=== PATIENT | female | born 1940 | race Caucasian/White ===

== ENCOUNTER → 2018-09-11 | Outpatient (CLI) | payer MEDICARE ==
[~2018-09-11] MED LIST: ACET500 PO; ASPI325EC PO; CALCIUM PO; Calcium Citrat250 MG PO; DIGESTIVE ENZY220 MG PO; DIGESTIVE ENZYMES PO; EPIN.3I; EPIPEN0.3 MG/0.3 IM; GLUC PO; JOINT FORMULA PO; LEVSOD100 PO; MEGA MULTIVIT PO; MILK THISTLE PO; MSM PO; OXYC5 PO; [UNRECOGNIZED DRUG - OTHER]; [UNRECOGNIZED DRUG - OTHER]; [UNRECOGNIZED DRUG - OTHER]; [UNRECOGNIZED DRUG - OTHER] PO
== END | disposition home or self-care (01) ==
LOC: LAB SHORT 13:10 → LAB 13:10
DX: L08.0 Pyoderma (principal)
CPT/HCPCS: 87070; 87205

== ENCOUNTER 2018-12-11 06:12 | Day surgery (SDC) | payer MEDICARE ==
[~2018-12-11] VITALS: Ht 162.6 cm; Wt 82.0 kg
[~2018-12-11 06:12] MED LIST changes: -Calcium Citrat250 MG PO; -DIGESTIVE ENZY220 MG PO; -[UNRECOGNIZED DRUG - OTHER]; -[UNRECOGNIZED DRUG - OTHER]; -[UNRECOGNIZED DRUG - OTHER]
[2018-12-11] MEDS ORDERED: Calcium Citrat250 MG PO (06:37)
[2018-12-11] MEDS ORDERED: DIGESTIVE ENZY220 MG PO (06:38)
[2018-12-11] MEDS ORDERED: [UNRECOGNIZED DRUG - OTHER] (06:39)
[2018-12-11] MEDS ORDERED: [UNRECOGNIZED DRUG - OTHER] (06:40)
[2018-12-11] MEDS ORDERED: [UNRECOGNIZED DRUG - OTHER] (06:40)
--- NOTE | 2018-12-11 08:20 | NUR ---
PT TO RECOVERY POST PROCEDURE. PT IS AWAKE AND CONVERSING. PT DENIES PAIN, SOB OR NAUSEA. MONITOR SR 70'S, B/P 122/62, AFEBRILE, SPO2 97 RA. R BRACHIAL SITE, NO SWELLING/HEMATOMA, LEDY DRSG IN PLACE-OLD DRAINAGE MAPPED. PT SITTING UP IN THE CHAIR, VISITING WITH FAMILY.
--- NOTE | 2018-12-11 10:35 | NUR ---
PT AMB TO BATHROOM, SITE UNCHANGED WITH ACTIVITY. PT GOT DRESSED WITH ASSISTANCE FROM SPOUSE, ARM BOARDS IN PLACE R ARM TO RESTRICT MOVEMENT AND PRESSURE ON SITE.
--- NOTE | 2018-12-11 10:45 | NUR ---
PT AND FAMILY RECEIVED DISCHARGE INSTRUCTIONS, MED LIST AND SUPPLEMENTAL "AFTER CARE" MATERIAL, VERBALIZED GOOD UNDERSTANDING. IV REMOVED-CANNULA INTACT.
--- NOTE | 2018-12-11 10:55 | NUR ---
PT LEFT FACILITY VIA W/C WITH FAMILY, CONDITION STABLE.
== END 2018-12-11 10:55 | disposition home or self-care (01) ==
LOC: MHTC 06:12
DX: Z01.810 Encounter for preprocedural cardiovascular examination (principal); I08.0 Rheumatic disorders of both mitral and aortic valves; D72.819 Decreased white blood cell count, unspecified; I10 Essential (primary) hypertension; E03.9 Hypothyroidism, unspecified; M19.90 Unspecified osteoarthritis, unspecified site; Z87.891 Personal history of nicotine dependence; Z88.0 Allergy status to penicillin; Z96.643 Presence of artificial hip joint, bilateral
CPT/HCPCS: 93005; 93010; 93454; 99152; 99153; C1769; C1894; J1644; J2250; J3010; J7030; Q9967

== ENCOUNTER 2019-01-03 09:10 | Day surgery (SDC) | payer MEDICARE ==
[~2019-01-03] VITALS: Ht 167.6 cm; Wt 81.8 kg
[~2019-01-03 09:10] MED LIST changes: +Calcium Citrat250 MG PO; +DIGESTIVE ENZY220 MG PO; +[UNRECOGNIZED DRUG - OTHER]; +[UNRECOGNIZED DRUG - OTHER]; +[UNRECOGNIZED DRUG - OTHER]
== END 2019-01-03 23:47 | disposition home or self-care (01) ==
LOC: MHTC 09:10
DX: I08.0 Rheumatic disorders of both mitral and aortic valves (principal); I42.9 Cardiomyopathy, unspecified; D72.819 Decreased white blood cell count, unspecified; E03.9 Hypothyroidism, unspecified; E78.5 Hyperlipidemia, unspecified; Z96.643 Presence of artificial hip joint, bilateral; Z91.030 Bee allergy status; Z88.0 Allergy status to penicillin; Z91.048 Other nonmedicinal substance allergy status; Z79.899 Other long term (current) drug therapy
CPT/HCPCS: 76376; 93312; 93325; J2250; J3010; J7040

== ENCOUNTER 2019-04-15 14:06 | Day surgery (SDC) | payer MEDICARE | END 2019-04-15 22:45 | disposition home or self-care (01) | LOC: US 14:06 | DX: I50.9 Heart failure, unspecified (principal); J91.8 Pleural effusion in other conditions classified elsewhere; I35.0 Nonrheumatic aortic (valve) stenosis; E78.5 Hyperlipidemia, unspecified; E03.9 Hypothyroidism, unspecified; I42.9 Cardiomyopathy, unspecified; Z87.891 Personal history of nicotine dependence; Z79.899 Other long term (current) drug therapy; Z79.82 Long term (current) use of aspirin; Z95.0 Presence of cardiac pacemaker; Z88.0 Allergy status to penicillin; Z91.030 Bee allergy status; Z91.048 Other nonmedicinal substance allergy status; Z95.2 Presence of prosthetic heart valve | CPT/HCPCS: 32555; 36415; 71045; 80053; 83615; 85025; 85610; 85730 ==

== ENCOUNTER 2019-05-05 23:43 | Observation (INO) | payer MEDICARE ==
[~2019-05-05] VITALS: Ht 157.5 cm; Wt 74.7 kg
[~2019-05-05 23:43] MED LIST changes: -[UNRECOGNIZED DRUG - OTHER]; +[UNRECOGNIZED DRUG - OTHER] PO
[2019-05-06 00:45] LABS: BASOPHILS ABSOLUTE AUTO 0.07 K/mm3 (0.00-0.23); BASOPHILS PERCENT AUTO 2 % (0-2); EOSINOPHILS ABSOLUTE AUTO 0.27 K/mm3 (0.00-0.68); EOSINOPHILS PERCENT AUTO 6 % (0-6); Hematocrit 39.8 % (33.0-51.0); Hemoglobin 12.5 g/dL (11.5-16.0); IMMATURE GRAN ABSOLUTE AUTO 0.02 K/mm3 (0.00-0.10); IMMATURE GRAN PERCENT AUTO 1 % (0-1); LYMPHOCYTES ABSOLUTE AUTO 1.01 K/mm3 (0.84-5.20); LYMPHOCYTES PERCENT AUTO 24 % (21-46); MONOCYTES ABSOLUTE AUTO 0.54 K/mm3 (0.16-1.47); MONOCYTES PERCENT AUTO 13 % (4-13); Mean Corpuscular HGB 30.5 pg (26.0-34.0); Mean Corpuscular HGB Conc 31.4 g/dL (31.5-36.5); Mean Corpuscular Volume 97 fL (80-100); Mean Platelet Volume 11.5 fL (9.1-12.4); NEUTROPHILS ABSOLUTE AUTO 2.36 K/mm3 (1.96-9.15); NEUTROPHILS PERCENT AUTO 55 % (41-73); Platelet Count 176 K/mm3 (150-400); RDW Coefficient Variation 14.9 % (11.7-14.2); RDW Standard Deviation 53.9 fL (35.1-46.3); White Blood Cell Count 4.27 K/mm3 (4.00-11.30)
[2019-05-06 01:06] LABS: Alanine Aminotransfer (ALT/SGP 36 U/L (12-78); Albumin, Blood 2.3 g/dL (3.4-5.0); Albumin/Globulin Ratio 0.5 (0.8-1.8); Alk Phos 399 U/L (50-136); Anion Gap 5 mmol/L (6-16); Aspartate Aminotrans (AST/SGOT 45 U/L (12-37); Bilirubin, Total 0.2 mg/dL (0.1-1.0); Blood Urea Nitrogen 14 mg/dL (8-24); CO2, Blood 30 mmol/L (21-32); Calcium, Blood 8.6 mg/dL (8.5-10.1); Chloride, Blood 101 mmol/L (98-108); Creatinine, Blood 0.74 mg/dL (0.40-1.00); Globulin, Blood 4.7 g/dL (2.2-4.0); Glomerular Filtration Rate >60 (60-); Glucose, Blood 222 mg/dL (70-99); Potassium, Blood 3.8 mmol/L (3.5-5.5); Sodium, Blood 136 mmol/L (136-145)
[2019-05-06] MEDS ORDERED: METO25 PO (01:47)
[2019-05-06] MEDS ORDERED: FURO40 PO (01:48)
[2019-05-06] MEDS ORDERED: POTCHL20ER PO (01:48)
[2019-05-06] MEDS ORDERED: ASPI81CH PO (01:49)
[2019-05-06] MEDS ORDERED: CITRACAL PO (01:51)
[2019-05-06] MEDS ORDERED: CURCUMIN PO (01:53)
[2019-05-06] MEDS ORDERED: [UNRECOGNIZED DRUG - OTHER] PO (01:54)
[2019-05-06] MEDS ORDERED: VITAMIN D35000 UNI2 PO (01:54)
[2019-05-06] MEDS ORDERED: DIGESTIVE ENZYMES PO (01:55)
[2019-05-06] MEDS ORDERED: [UNRECOGNIZED DRUG - OTHER] PO (01:57)
[2019-05-06] MEDS ORDERED: ACET325 PO (02:00)
[2019-05-06] MEDS ORDERED: [UNRECOGNIZED DRUG - OTHER] PO (02:00)
--- NOTE | 2019-05-06 02:55 | NUR ---
PATIENT BEING ADMITTED TO THE FLOOR FOR CHEST PAIN. SHE ARRIVED VIA GURNEY AND TRANSFERRED TO BED WITH 1 PERSON ASSIST. FAMILY IS AT BEDSIDE AND HELPED WITH ADMISSION. STATES RECENT AORTIC STENOSIS SURGERY IN [place] 03/13/19. SINCE THEN SHE HAS DEVELOPED FLUIDS ON THE LUNGS AND NEEDING THOROSENTSIS TWICE. LAST ONE YESTERDAY. EACH TIMES HAS PULLED OFF 1 LITER OF FLUID. SHE DEVELOPED CHEST PAIN LAST NIGHT AROUND 2230. IT WAS DULL ACHE THAT DID NOT RESOLVE NO MATTER WHAT THEY DID. THEREFORE COMING TO THE HOSPITAL. TROPONIN IS 0.060 AT THIS TIME. ADMISSION COMPLETED. ORIENTED TO ROOM. SON GOING HOME FOR THE NIGHT. IS STAYING WITH PATIENT. CALL LIGHT GIVEN. DENIED FLU SHOT AND LOVENOX. WILL CONTINUE TO MONITOR.
--- NOTE | 2019-05-06 05:24 | NUR ---
SHIFT SUMMARY: PATIENT ARRIVED TO THE FLOOR AROUND 0245 LAST NIGHT WITH CHEST PAIN. BY THE TIME SHE GOT TO THE FLOOR CHEST PAIN WAS RESOLVING RATING IT AT 2-3. IT WAS MIDSTERNUM AND GOING DOWN THE LEFT ARM. SHE DENIED HER LOVENOX SHOT GIVEN THE RECENT CARDIAC SURGERY AND DENIED FLU SHOT SHE HAD ONE. SETTLED THE PATIENT IN FOR THE NIGHT. THERE HAS NOT BEEN ANY CHEST PAIN SINCE ARRIVAL. TELEMETRY RESULTS ARE SINUS RUNNING IN THE 80'S. VS HAVE REMAINED WNL. NO CHANGES TO REPORT. CALL LIGHT REMAINED IN REACH.
[2019-05-06 05:27] LABS: BASOPHILS ABSOLUTE AUTO 0.02 K/mm3 (0.00-0.23); BASOPHILS PERCENT AUTO 1 % (0-2); EOSINOPHILS ABSOLUTE AUTO 0.13 K/mm3 (0.00-0.68); EOSINOPHILS PERCENT AUTO 5 % (0-6); Hematocrit 37.9 % (33.0-51.0); IMMATURE GRAN ABSOLUTE AUTO 0.01 K/mm3 (0.00-0.10); IMMATURE GRAN PERCENT AUTO 0 % (0-1); LYMPHOCYTES ABSOLUTE AUTO 0.94 K/mm3 (0.84-5.20); LYMPHOCYTES PERCENT AUTO 35 % (21-46); MONOCYTES ABSOLUTE AUTO 0.51 K/mm3 (0.16-1.47); MONOCYTES PERCENT AUTO 19 % (4-13); Mean Corpuscular HGB 30.6 pg (26.0-34.0); Mean Corpuscular HGB Conc 31.7 g/dL (31.5-36.5); Mean Corpuscular Volume 97 fL (80-100); Mean Platelet Volume 11.2 fL (9.1-12.4); NEUTROPHILS ABSOLUTE AUTO 1.11 K/mm3 (1.96-9.15); NEUTROPHILS PERCENT AUTO 41 % (41-73); Platelet Count 161 K/mm3 (150-400); RDW Coefficient Variation 15.1 % (11.7-14.2); RDW Standard Deviation 53.8 fL (35.1-46.3); Red Blood Cell Count 3.92 M/mm3 (3.80-5.20); White Blood Cell Count 2.72 K/mm3 (4.00-11.30)
--- NOTE | 2019-05-06 09:01 | NUR ---
Echocardiogram completed.
--- NOTE | 2019-05-06 17:45 | NUR ---
SUMMARY PT SITTING UP IN BED VISITING WITH FAMILY, PT HAS BEEN UP WITH MIN ASSIST TO THE BATHROOM, SPOUSE HAS BEEN AT THE BEDSIDE FOR MOST OF THE DAY, SON HAS ALSO BEEN IN TO VISIT, PULM CONSULT AND CARDIO CONSULT DONE, CT SCAN OF THE CHEST DONE, PT HAS BEEN CHEST PAIN FREE T/O THE DAY, PLAN TO DC HOME IN AM, VSS, NO ACUTE CHANGES, WILL CONT TO MONITOR
--- NOTE | 2019-05-07 04:22 | NUR ---
SHIFT SUMMARY ADMITTED FOR CHEST PAIN. FULL CODE. A&O X4. TELEMETRY IS MONITORING: PACED, BBB @ 88 BPM. RA, STANDBY ASSIST TO BATHROOM, CARDIAC DIET. HOPEFUL FOR DC TODAY. AWAITING MORNING TROPONIN LABS. SUSPICION OF SLOW BLEED FROM OPEN HEART SURGERY PERFORMED IN FEBRUARY 2019. HX: RIGHT PE, AORTIC & MITRAL VALVE STENOSIS, VALVE REPLACEMENTS, HYPOTHYROID, OSTEOARTHRITIS, LOW GRADE B-CELL LYMPHOMA, MYOMECTOMY. DENIES CHEST PAIN THIS SHIFT.
--- NOTE | 2019-05-07 11:12 | NUR ---
SUMMARY/DISCHARGE PT DISCHARGED TO HOME, PT VERBALIZED UNDERSTANDING OF DISCHARGE INSTRUCTIONS REGARDING FOLLOW UP AND MEDS, PT TAKEN OUT SAFELY VIA WHEELCHAIR
== END 2019-05-07 11:00 | disposition home or self-care (01) ==
LOC: ER 23:43 → MEDS 23:44
PROVIDERS: Emergency Medicine; ADMIT Hospitalist
DX: R07.9 Chest pain, unspecified (principal); J90 Pleural effusion, not elsewhere classified; E03.9 Hypothyroidism, unspecified; C85.10 Unspecified B-cell lymphoma, unspecified site; Z95.2 Presence of prosthetic heart valve; Z88.0 Allergy status to penicillin; Z91.038 Other insect allergy status; Z88.8 Allergy status to other drugs, medicaments and biological substances; Z79.82 Long term (current) use of aspirin; Z79.899 Other long term (current) drug therapy; Z87.891 Personal history of nicotine dependence
CPT/HCPCS: 36415; 71046; 71260; 80053; 83690; 84443; 84484; 85025; 93005; 93010; 93306; 93308; 93321; 99285-25; A9270-GY; G0378; Q9967

== ENCOUNTER 2020-11-23 08:16 | Day surgery (SDC) | payer MEDICARE ==
[~2020-11-23] VITALS: Ht 167.6 cm; Wt 79.1 kg
[~2020-11-23 08:16] MED LIST changes: +ACET325 PO; +ASPI81CH PO; +CITRACAL PO; +CURCUMIN PO; +FURO40 PO; +METO25 PO; +POTCHL20ER PO; +VITAMIN D35000 UNI2 PO; +[UNRECOGNIZED DRUG - OTHER] PO; +[UNRECOGNIZED DRUG - OTHER] PO; +[UNRECOGNIZED DRUG - OTHER] PO
--- NOTE | 2020-11-23 09:01 | NUR ---
History, Chart, Medications and Allergies reviewed before start of procedure. Patient confirms NPO status and agrees with scheduled surgery. Patient States Post-Procedure ride home has been arranged arranged with her .
--- NOTE | 2020-11-23 12:35 | NUR ---
PT ABLE TO DRESS WITH NO ASSISTANCE. RIDE HOME WAITING OUT FRONT. PT GIVEN D/C INSTRUCTIONS, DENIES QUESTIONS. MEDIPORT ACCESS PACKET GIVEN TO PT. D/C VIA .
== END 2020-11-23 23:00 | disposition home or self-care (01) ==
LOC: ORSCMMR 08:16 → ORD 09:30 → ORSCMMR 23:00
PROVIDERS: Surgery
PROC: 05HM33Z Insertion of Infusion Device into Right Internal Jugular Vein, Percutaneous Approach (ICD-10-PCS; principal; 2020-11-23 09:30)
PROC: B543ZZA Ultrasonography of Right Jugular Veins, Guidance (ICD-10-PCS; principal; 2020-11-23 09:30)
DX: C83.88 Other non-follicular lymphoma, lymph nodes of multiple sites (principal); I10 Essential (primary) hypertension; I25.10 Atherosclerotic heart disease of native coronary artery without angina pectoris; Z95.0 Presence of cardiac pacemaker; E03.9 Hypothyroidism, unspecified; Z79.899 Other long term (current) drug therapy; Z79.82 Long term (current) use of aspirin
CPT/HCPCS: 77001; C1788; J0690; J1100; J1642; J2250; J2370; J2405; J2704; J3010; J7120

== ENCOUNTER → 2021-04-24 | Outpatient (CLI) | payer MEDICARE ==
[2021-04-24 17:09] LABS: Hematocrit 40.7 % (33.0-51.0); Hemoglobin 13.7 g/dL (11.5-16.0); Mean Corpuscular HGB 31.9 pg (26.0-34.0); Mean Corpuscular HGB Conc 33.7 g/dL (31.5-36.5); Mean Corpuscular Volume 95 fL (80-100); RDW Coefficient Variation 13.2 % (11.7-14.2); RDW Standard Deviation 46.2 fL (35.1-46.3); Red Blood Cell Count 4.29 M/mm3 (3.80-5.20); White Blood Cell Count 1.16 K/mm3 (4.00-11.30)
[2021-04-24 17:20] LABS: Albumin, Blood 2.8 g/dL (3.4-5.0); Albumin/Globulin Ratio 0.9 (0.8-1.8); Bilirubin, Total 0.9 mg/dL (0.1-1.0); Bun/Creatinine Ratio 16.7 (12.0-20.0); Calcium, Blood 8.7 mg/dL (8.5-10.1); Creatinine, Blood 0.96 mg/dL (0.40-1.00); Globulin, Blood 3.2 g/dL (2.2-4.0); Potassium, Blood 3.9 mmol/L (3.5-5.5)
[2021-04-24 17:47] LABS: Mean Platelet Volume 13.2 fL (9.1-12.4)
[2021-04-24 17:49] LABS: Platelet Count 41 K/mm3 (150-400)
[2021-04-24 18:12] LABS: BAND PERCENT MAN 6 % (0-8); BASOPHILS PERCENT MAN 0 % (0-2); EOSINOPHILS ABSOLUTE MAN 0.02 K/mm3 (0.00-0.68); EOSINOPHILS PERCENT MAN 2 % (0-6); LYMPHOCYTES ABSOLUTE MAN 0.61 K/mm3 (0.84-5.20); LYMPHOCYTES PERCENT MAN 53 % (21-46); MONOCYTES ABSOLUTE MAN 0.33 K/mm3 (0.16-1.47); MONOCYTES PERCENT MAN 29 % (4-13); NEUTROPHILS ABSOLUTE MAN 0.18 K/mm3 (1.96-9.15); SEG NEUTROPHILS PERCENT MAN 10 % (41-73); TOTAL CELLS COUNTED 100
== END | disposition home or self-care (01) ==
LOC: LAB SHORT 17:03 → LAB 17:03
PROVIDERS: Physician Assistant Medical
DX: R53.83 Other fatigue (principal)
CPT/HCPCS: 80053; 85025

== ENCOUNTER 2021-04-28 14:52 | Inpatient (IN) | payer MEDICARE ==
[~2021-04-28] VITALS: Ht 167.6 cm; Wt 75.5 kg
[2021-04-28 18:43] LABS: Hematocrit 40.6 % (33.0-51.0); Mean Corpuscular HGB Conc 34.5 g/dL (31.5-36.5); Mean Corpuscular Volume 90 fL (80-100); Platelet Count 58 K/mm3 (150-400); RDW Coefficient Variation 13.8 % (11.7-14.2); RDW Standard Deviation 45.9 fL (35.1-46.3); Red Blood Cell Count 4.51 M/mm3 (3.80-5.20); White Blood Cell Count 14.84 K/mm3 (4.00-11.30)
[2021-04-28 18:50] LABS: Mean Platelet Volume 13.5 fL (9.1-12.4)
[2021-04-28 19:03] LABS: Albumin, Blood 2.3 g/dL (3.4-5.0); Albumin/Globulin Ratio 0.7 (0.8-1.8); Bilirubin, Total 0.8 mg/dL (0.1-1.0); Bun/Creatinine Ratio 25.2 (12.0-20.0); Calcium, Blood 8.4 mg/dL (8.5-10.1); Creatinine, Blood 1.27 mg/dL (0.40-1.00); Globulin, Blood 3.5 g/dL (2.2-4.0); Total Protein, Blood 5.8 g/dL (6.4-8.2)
[2021-04-28 19:16] LABS: Source, Urine Clean Catch
[2021-04-28 19:22] LABS: Appearance, Urine Clear (Clear); Bilirubin, Urine Neg (Neg); Blood, Urine Neg (Neg); Color, Urine Yellow (P-Yellow); Glucose Qualitative, Urine Neg (Neg); Ketones, Urine Neg (Neg); Leukocyte Esterase, Urine Neg (Neg); Nitrite, Urine Neg (Neg); Protein, Urine Neg (Neg); Specific Gravity, Urine 1.005 (1.003-1.022); Urobilinogen, Urine NORM (Normal)
[2021-04-28 19:58] LABS: BAND PERCENT MAN 15 % (0-8); BASOPHILS PERCENT MAN 0 % (0-2); EOSINOPHILS PERCENT MAN 0 % (0-6); LYMPHOCYTES ABSOLUTE MAN 0.44 K/mm3 (0.84-5.20); LYMPHOCYTES PERCENT MAN 3 % (21-46); MONOCYTES ABSOLUTE MAN 0.89 K/mm3 (0.16-1.47); MONOCYTES PERCENT MAN 6 % (4-13); SEG NEUTROPHILS PERCENT MAN 76 % (41-73); TOTAL CELLS COUNTED 100
--- NOTE | 2021-04-28 21:55 | NUR ---
ADMISSION: PATIENT IS RECIEVED FROM ER VIA STRETCHER. STOOD AND TRANSFERED WITH SBA TO THE BED. A&O X4, REPORTING BACK AND ABD. PAIN ONLY WITH MOVEMENT. NONE AT REST. PATIENT IS ORIENTED TO ROOM AND CALL PETERS. NO DIET ORDER OR HOME MEDICATION AT THIS TIME. WILL NOTIFY .
--- NOTE | 2021-04-29 02:30 | NUR ---
ISOLATION: DR HOUSER HAS ORDERED A GI AND RESPIRATORY PANEL. PATIENT IS NOW IN ENHANCED ISOLATION PENDING TEST RESULTS. RESPIRATORY PANEL WAS COLLECTED AND SENT. AWAITING BM FOR STOOL SAMPLE.
[2021-04-29 05:24] LABS: Adenovirus Not Detected (NOT DETECT); Bordetella pertussis Not Detected (NOT DETECT); Chlamydophila pneumoniae Not Detected (NOT DETECT); Coronavirus 229E Not Detected (NOT DETECT); Coronavirus HKU1 Not Detected (NOT DETECT); Coronavirus NL63 Not Detected (NOT DETECT); Coronavirus OC43 Not Detected (NOT DETECT); Human Metapneumovirus Not Detected (NOT DETECT); Human Rhinovirus/Enterovirus Not Detected (NOT DETECT); Influenza A/2009-H1 Not Detected (NOT DETECT); Influenza A/H1 Not Detected (NOT DETECT); Influenza A/H3 Not Detected (NOT DETECT); Influenza B Not Detected (NOT DETECT); Mycoplasma pneumoniae Not Detected (NOT DETECT); Parainfluenza Virus 1 Not Detected (NOT DETECT); Parainfluenza Virus 2 Not Detected (NOT DETECT); Parainfluenza Virus 3 Not Detected (NOT DETECT); Parainfluenza Virus 4 Not Detected (NOT DETECT); Respiratory Syncytial Virus Not Detected (NOT DETECT); SARS-Cov-2 (COVID-19), BioFire Not Detected (NOT DETECT)
--- NOTE | 2021-04-29 05:31 | NUR ---
SHIFT SUMMARY: PATIENT ONLY HAS PAIN WITH MOVEMENT, VSS, TOLERATING A CLEAR LIQUID DIET WELL. UP TO THE BATHROOM WITH A CONTACT ASSIST OF 1, MOVES VERY SLOWLEY BED ALARM IS ON. RESPIRATORY PANEL IN NEGATIVE. NO BM THIS SHIFT. PATIENT REMAINS IN ENHANCED CONTACT RECAUTIONS.
[2021-04-29 05:40] LABS: BASOPHILS ABSOLUTE AUTO 0.09 K/mm3 (0.00-0.23); BASOPHILS PERCENT AUTO 1 % (0-2); EOSINOPHILS ABSOLUTE AUTO 0.11 K/mm3 (0.00-0.68); EOSINOPHILS PERCENT AUTO 1 % (0-6); Hemoglobin 14.2 g/dL (11.5-16.0); IMMATURE GRAN ABSOLUTE AUTO 0.24 K/mm3 (0.00-0.10); IMMATURE GRAN PERCENT AUTO 2 % (0-1); LYMPHOCYTES ABSOLUTE AUTO 0.64 K/mm3 (0.84-5.20); LYMPHOCYTES PERCENT AUTO 4 % (21-46); MONOCYTES ABSOLUTE AUTO 0.81 K/mm3 (0.16-1.47); MONOCYTES PERCENT AUTO 5 % (4-13); Mean Corpuscular HGB 31.1 pg (26.0-34.0); Mean Corpuscular HGB Conc 33.8 g/dL (31.5-36.5); Mean Corpuscular Volume 92 fL (80-100); NEUTROPHILS PERCENT AUTO 87 % (41-73); Platelet Count 52 K/mm3 (150-400); RDW Coefficient Variation 14.1 % (11.7-14.2); RDW Standard Deviation 47.8 fL (35.1-46.3); Red Blood Cell Count 4.56 M/mm3 (3.80-5.20); White Blood Cell Count 14.89 K/mm3 (4.00-11.30)
[2021-04-29 05:44] LABS: Mean Platelet Volume 13.1 fL (9.1-12.4)
[2021-04-29 06:04] LABS: Albumin, Blood 2.2 g/dL (3.4-5.0); Albumin/Globulin Ratio 0.6 (0.8-1.8); Bilirubin, Total 0.8 mg/dL (0.1-1.0); Bun/Creatinine Ratio 25.8 (12.0-20.0); Calcium, Blood 8.4 mg/dL (8.5-10.1); Creatinine, Blood 1.28 mg/dL (0.40-1.00); Globulin, Blood 3.5 g/dL (2.2-4.0); Potassium, Blood 3.7 mmol/L (3.5-5.5); Total Protein, Blood 5.7 g/dL (6.4-8.2)
--- NOTE | 2021-04-29 17:38 | NUR ---
SHIFT SUMMARY PATIENT ALERT AND ORIENTED X3-4. PATIENT HAS BEEN RESTING MOST OF SHIFT. PATIENT HAS HAD SOFT BLOOD PRESSURES THIS SHIFT. CALLED DR ABOUT BP. BOLUS PLUS MEDICATION ADDED. NS GOING AT 150ML/HR. PATIENT TOLERATING A CLEAR LIQUID DIET WELL. PATIENT IS A ONE PERSON ASSIST TO BATHROOM. GI PANEL ORDERED BUT NO BM YET TO SEND. PATIENT IS STILL ON CONTACT CDIFF PRECAUTIONS UNTIL RULED OUT OR 24HR ORDER . NO ACUTE ISSUES THIS SHIFT. VITAL SIGNS REVIEWED. WILL MONITOR UNTIL SHIFT CHANGE.
--- NOTE | 2021-04-29 23:27 | NUR ---
PER PATIENT, HER SON KAUR WANTED TO SPEAK TO NURSE FOR UPDATES. I CALLED AND LEFT HIM A VOICEMAIL AT 2076 TO GIVE US A CALL BACK AT HIS EARLIEST CONVENIENCE.
--- NOTE | 2021-04-30 00:26 | NUR ---
SPOKE WITH PATIENT'S SON KAUR AND GAVE HIM UPDATES. AWAITING BLOOD CULTURE SUBCULTURES AND STATED HIS MOM HAS NOT MENTIONED ANY PAIN THIS SHIFT. REVIEWED DOCTOR'S PLAN OF CARE NOTES.
--- NOTE | 2021-04-30 07:56 | NUR ---
PATIENT SLEPT MAJORITY OF THE EVENING. BP HAS STABALIZED WITH SBP AVERAGING 105 AND DBP IN HIGH 50'S. BLOOD CULTURES CAME BACK AT 0638 SHOWING PROBABLE ENTEROCOCCUS WITH ID AND JOSHUA TO FOLLOW. RESPIRATORY PANEL NEGATIVE. UNABLE TO OBTAIN STOOL SAMPLE FOR R/O C.DIFF - ORDER DC'ED PER PROTOCOL.
--- NOTE | 2021-04-30 16:10 | NUR ---
SHIFT SUMMARY PATIENT IS ALERT AND ORIENTED X4. PATIENT HAS BEEN RESTING MOST OF SHIFT. PATIENT HAS HAD STABLE BP THIS SHIFT. MIDODRINE DISCONTINUED. NS GOING AT 60ML/HR 1X BAG. VANCO STARTED. PATIENT HAS HAD NO ACUTE EVENTS THIS SHIFT. PATIENT HAS NO COMPLAINTS OF NAUSEA, SOB, VOMITTING OR PAIN THIS SHIFT. BED IS IN LOWEST AND LOCKED POSITION. WILL MONITOR UNTIL SHIFT CHANGE.
--- NOTE | 2021-05-01 05:05 | NUR ---
SHIFT SUMMARY A/O, ABLE TO MAKE NEEDS KNOWN. COPERATIVE WITH CARE. ANSWERS QUESTIONS APPROPRIATELY. C/O DISCOMFORT TO BACK/HIPS DENIED NEED FOR INTERVENTION. APPEARED TO REST MUCH OF THE NIGHT. NEW IV PLACED TO LAC; IV FLUIDS/ABX ADMINISTERED W/O COMPLICATION. REMAINS 1P /c GB AND FWW; SLOW BUT STEADY GAIT. NO ACUTE CHANGES NOTED. BED IN LOWEST POSITION; ALARM ON. CALL LIGHT AND BELONGINGS WITHIN REACH. REPORT TO ONCOMING RN.
[2021-05-01 05:41] LABS: Hematocrit 35.9 % (33.0-51.0); Hemoglobin 12.3 g/dL (11.5-16.0); Mean Corpuscular HGB 31.4 pg (26.0-34.0); Mean Corpuscular HGB Conc 34.3 g/dL (31.5-36.5); Mean Corpuscular Volume 92 fL (80-100); Mean Platelet Volume 12.1 fL (9.1-12.4); Platelet Count 62 K/mm3 (150-400); RDW Coefficient Variation 14.4 % (11.7-14.2); RDW Standard Deviation 48.5 fL (35.1-46.3); Red Blood Cell Count 3.92 M/mm3 (3.80-5.20); White Blood Cell Count 11.76 K/mm3 (4.00-11.30)
[2021-05-01 06:02] LABS: Albumin, Blood 1.8 g/dL (3.4-5.0); Albumin/Globulin Ratio 0.6 (0.8-1.8); Bilirubin, Direct 0.3 mg/dL (0.0-0.3); Bilirubin, Indirect 0.4 mg/dL (0.1-0.7); Bilirubin, Total 0.7 mg/dL (0.1-1.0); Bun/Creatinine Ratio 18.5 (12.0-20.0); Calcium, Blood 8.2 mg/dL (8.5-10.1); Creatinine, Blood 1.08 mg/dL (0.40-1.00); Globulin, Blood 3.1 g/dL (2.2-4.0); Phosphorus, Blood 3.1 mg/dL (2.5-4.9); Potassium, Blood 3.6 mmol/L (3.5-5.5); Total Protein, Blood 4.9 g/dL (6.4-8.2)
--- NOTE | 2021-05-01 15:54 | NUR ---
SHIFT SUMMARY PATIENT IS ALERT AND ORIENTED X4. PATIENT HAS HAD FLUIDS DISCONTINUED AFTER LOWER LEG EDEMA NOTED WITH DR CHEUNG. PATIENT HAS BEEN ON CLEAR LIQUID DIET, ADVANCED TO CARDIAC DIET, TOLERATED WELL BUT LITTLE APPETITE. PATIENT HAS SLEPT FOR A MAJORITY OF SHIFT. PATIENT WORKED WITH PT AND GOT INTO THE CHAIR. PATIENT HAS HAD NO COMPLAINTS OF PAIN, NAUSEA, SOB OR VOMITTING THIS SHIFT. VANCO WAS DISCONTINUED. CONTINUE WITH CIPRO AND FLAGYL ANTIBIOTICS. VITAL SIGNS REVIEWED. NO ACUTE EVENTS THIS SHIFT. WILL MONITOR UNTIL SHIFT CHANGE.
[2021-05-02 04:54] LABS: Albumin, Blood 1.8 g/dL (3.4-5.0); Albumin/Globulin Ratio 0.6 (0.8-1.8); Bilirubin, Total 0.8 mg/dL (0.1-1.0); Bun/Creatinine Ratio 17.8 (12.0-20.0); Creatinine, Blood 1.07 mg/dL (0.40-1.00); Potassium, Blood 3.6 mmol/L (3.5-5.5); Total Protein, Blood 4.8 g/dL (6.4-8.2)
--- NOTE | 2021-05-02 05:59 | NUR ---
PATIENT ONLY HAD COMPLAINTS OF PAIN ONCE THIS SHIFT. SHE IS NOW GETTING UP TO THE CHAIR WITH WALKER AND ASSISTANCE. ALL FLUIDS WERE STOPPED DUE TO +2 EDEMA IN FEET AND ANKLES. FOLLOW-UP BLOOD CULTURES STILL SHOW GRAM POSITIVE COCCOBACILLI.
--- NOTE | 2021-05-02 16:02 | NUR ---
PATIENT AMBULATED TO BATHROOM WITH WALKER AND NURSE ASSIST. VOIDED WITHOUT DIFFICULTY. JESUS MANUEL CARE DONE BY NURSE. PATIENT BACK IN BED, RESTING. HAS COMPRESSION DEVICE ON.
--- NOTE | 2021-05-02 18:33 | NUR ---
SHIFT SUMMARY PT UP TO CHAIR FOR SUPPER. DECLINED P.T. THIS MORNING. DID EXPLAIN TO PT IT WOULD BEHOOVE HER TO NOT DECLINE P.T. IN THE FUTURE SO SHE CAN START TO GET STRONGER. 1 PERSON ASSIST WITH TRANSFERS AND AMBULATING WITH FWW. MEDICATED FOR PAIN TO ABDOMEN WITH EFFECT. NO NAUSEA OR VOMITTING TODAY. APPETITE ADEQUATE.
--- NOTE | 2021-05-02 18:49 | NUR ---
PATIENT WAS UP IN CHAIR FOR DINNER. AFTER DINNER PATIENT AMBULATED TO BATHROOM WITH WALKER AND NURSE. VOIDED AND AMBULATED BACK TO BED. PATIENT IS RESTING COMFORTABLY WITH BILATERAL LEG COMPRESSIONS DEVICE ON.
--- NOTE | 2021-05-03 04:35 | NUR ---
SHIFT SUMMARY AOX4. VSS. REPORTS 6-12/03 PAIN IN LLQ ABD, MEDICATED 1X c NORCO & 1X c 50MCG FENTANYL. REPOSITIONED. TOLERATING PO. DENIES N/V. ABD DISTENDED, TENDER TO PALPATION. ACTIVE BT. REPORTS NO BM SINCE 04/28/21, GAVE STOOL SOFTENER & PRUNE JUICE. HAD BLOODY MUCUS OUT NASAL PASSAGE THIS SHIFT. DENIES SOB. SPO2 >90% ON RA. LS DIM c CRACKLES IN RLL. EDEMA NOTED IN L FOREARM. CALL LIGHT IN REACH. WCTM.
--- NOTE | 2021-05-03 17:14 | NUR ---
SHIFT SUMMARY PT UP TO CHAIR AFTER BREAKFAST AND FOR LUNCH. REMINDED PT ITS IMPORTANT TO BE UP FOR MEALS TO KEEP HER STRENGTH UP. CONTINUES TO HAVE PAIN TO LLQ AND TENDER WITH PALPATION.
--- NOTE | 2021-05-04 03:38 | NUR ---
PATIENT CONTINUES TO HAVE PAIN TO HER ABDOMEN AND REQUESTED PAIN MEDICATION THREE TIMES NOW DURING THIS SHIFT. SHE HAS HAD SMALL PERIODS OF SLEEP T/O THE NIGHT BUT WAKES TO PAIN. MEDICATION ADMINISTERED PER EMAR WITH SOME EFFECTIVENESS HOWEVER DOESNT SEEM TO LAST VERY LONG. PATIENT CONTINUES ON IV ABX WITHOUT S/SX OF ADVERSE REACTIONS NOTED OR REPORTED. VITALS STABLE. PATIENT CALLS FOR STAFF ASSIST NEEDED. CALL LIGHT IS WITHIN REACH.
--- NOTE | 2021-05-04 17:38 | NUR ---
SHIFT SUMMARY PT HAS BEEN MOVING ABOUT IN THE ROOM, SITTING IN THE CHAIR AND WALKING TO THE BATHROOM. HER IV WAS INFILTRATED THIS AM AND SO I GOT PERMISSION FROM HER ONCOLOGIST AND THE HOSPITALIST TO ACCESS HER MEDIPORT. SHE TOLERATED THIS WELL AND HAS HAD IV MEDICATIONS AND FLUIDS RUNNING THROUGH IT TODAY. SHE HAS STILL NOT HAD A BOWEL MOVEMENT AND IS BEGINNING TO FEEL UNCOMFORTABLE. PT WAS GIVEN MIRALAX, PRUNE JUICE, AND POWER PUDDING. WILL REASSES ON SHIFT TOMORROW AND MAKE RETAIL SALESMAN AWARE. WILL CONTINUE TO MONITOR.
--- NOTE | 2021-05-05 05:20 | NUR ---
SHIFT SUMMARY 80 YR F ADMITTED ON 04/29/21 FOR ABDOMINAL PAIN: JELLY. PT HAS SLEPT MOST OF THIS SHIFT BUT HAS ASKED FOR PAIN MEDS TWICE AFTER C/O PAIN IN HER LEFT GROIN AREA. SHE WAS MEDICATED PER EMAR. SHE IS A&O BUT IS VERY QUIET. SHE SAID VERY LITTLE DURING THIS SHIFT. SHE IS INCONTINENT AND IS ABLE TO USE CALL LIGHT FOR ASSISTANCE.
[2021-05-05 05:27] LABS: Hematocrit 35.1 % (33.0-51.0); Hemoglobin 11.9 g/dL (11.5-16.0); Mean Corpuscular HGB 31.1 pg (26.0-34.0); Mean Corpuscular HGB Conc 33.9 g/dL (31.5-36.5); Mean Corpuscular Volume 92 fL (80-100); Mean Platelet Volume 11.5 fL (9.1-12.4); Platelet Count 54 K/mm3 (150-400); RDW Coefficient Variation 14.7 % (11.7-14.2); RDW Standard Deviation 49.5 fL (35.1-46.3); Red Blood Cell Count 3.83 M/mm3 (3.80-5.20); White Blood Cell Count 13.45 K/mm3 (4.00-11.30)
[2021-05-05 05:33] LABS: Calcium, Blood 8.6 mg/dL (8.5-10.1); Creatinine, Blood 1.08 mg/dL (0.40-1.00); Potassium, Blood 3.7 mmol/L (3.5-5.5)
--- NOTE | 2021-05-05 18:02 | NUR ---
SHIFT SUMMARY PT HAS BEEN RESTING IN BED. SHE IS STILL HAVING LOWER ABDOMINAL/ GROIN PAIN, BUT WAS ABLE TO HAVE A BM WHICH HAD KEPT HER CONSTIPATED FOR SEVERAL DAYS. NO ACUTE CHANGES TODAY , BLOOD PRESSURE WAS A LITTLE SOFT THIS MORNING AT 100/65, IMPROVED OVER THE COURSE OF THE DAY. WILL CONTINUE TO MONITOR.
--- NOTE | 2021-05-06 05:56 | NUR ---
SHIFT SUMMARY ASSUMED CARE OF PATIENT, SHE IS ASLEEP COMFORTBALY IN BED. ASSESSMENT COMPLETED BY PRIOR NURSE. DEFFERED MY ASSESSMENT UNTIL PATIENT AWOKE INDEPENDENTLY. ASSESSMENT COMPLETED AND CHARTED. PATIENT COMPLAINS OF ONGLNG ABDOMINAL PAIN, TREATED PER EMAR. SKIN IS FRAGILE WITH SCATTERED BRUISING. PORT TO LEFT CHEST INFUSING, BLOOD RETURN NOTED.
--- NOTE | 2021-05-06 18:16 | NUR ---
SHIFT SUMMARY NO ACUTE CHANGES, ONLY REQUIRED MEDICATION FOR PAIN ONCE. EAGERLY WAITING FOR DISCHARGE. WILL CONTINUE TO MONITOR.
--- NOTE | 2021-05-07 06:13 | NUR ---
Pt alert and oriented x4. Shows generalized weakness. Patient complains of pain in her abdomen, PRN medication given. No signs of distress. Pt is able to ambulate with walker and 1 person assist. Patient has a right chest port that is access. Antibiotics and fluid given through the port. Patient slept most of the night. Call light within reach.
--- NOTE | 2021-05-07 21:24 | NUR ---
WAS AWAKENED AT FOR ASSESSMENT AND MEDS. VOICED PAIN IN ABD AND SPINE AREA. MEDICATED - SEE MAR FOR DETAILS. CALL LIGHT IN REACH
--- NOTE | 2021-05-08 03:52 | NUR ---
LEASE ADMINISTRATION ANALYST SUMMARY HAS BEEN RESTING QUIETLY WITH A FEW INTERRUPTIONS. SAID INTERRUPTIONS INCLUDED REQUESTS FOR PAIN MEDS FOR ABD AND "SPINE" PAIN - SEE MAR FOR DETAILS. MEDS EFFECTIVE PT RESTING QUIETLY AT THIS TIME. IVF AND ANTIBIOTICS INFUSING VIA MEDIPORT. CALL LIGHT IN REACH.
--- NOTE | 2021-05-08 17:46 | NUR ---
SHIFT SUMMARY; PATIENT UP TO SHOWER DURING DAY AND AMBULATES TO AND FROM BATHROOM WITH ONE PERSON ASSIST. SHE HAS PLEASANT AFFECT. DOES COMPLAIN OF LOW BACK AND LEFT GROIN PAIN. SHE IS AO X 4 TODAY. SHE CONTINUES TO RECEIVE IV ANTIBIOTICS FOR POS BLOOD CULTURES. VITAL SIGNS ARE WNL. LUNGS ARE DIMINISHED THOUGHOUT BUT CLEAR. MAG CORNELL RN
--- NOTE | 2021-05-09 05:56 | NUR ---
Patient is alert and oriented x4. Complains of pain in her abdomen PRN pain medication given. patient is able to ambulate to the restroom with walker and one person assist. All needs met. No signs of distress. Patient has been sleeping with call light within reach.
--- NOTE | 2021-05-09 11:02 | NUR ---
PT PLEASANT COOP STATES SOME PAIN IN LOW ABD MOSTLY LEFT AND BACK. MED WITH NORCO. H/R REG, MURMER NOTED. NO TELE. PACER LUCW. PT STATES SINCE 2019, LUNGS CLEAR UPPER, CRACKLES BASES. LIGHT. ON R/A. RESP EASY, UNLABORED. BT X4 LAST BM THIS AM. VOIDS 1 ASST WITH FWW TO BATHROOM. BED IN LOW POSITION, CALL LITE IN REACH, CALLS APPROP
--- NOTE | 2021-05-09 16:40 | NUR ---
PT PLEASANT TODAY. MED FPR PAIN THIS AM, NOT SINCE AT THIS TIME. MEDIPORT ACCESS TRANSPARENT DRESSING WAS LOOSE TODAY. DID HAVE MACHINE CANDLE MOLDER RN ASSISTANCE AND REPLACED. CLEANED WITH CHLORASEPTIC, BIO PATCH PLACED. LINE CLEANED PRIOR TO NEW TRANSPARENT DRESSING PLACEMENT. STERILE TECHNIQUE MAINTAINED. PT MELINA WELL. IVF CONTINUED . PT IS AMBULATING TO BATHROOM WITH ASSISTANCE WITH PT/OT. NO NEW CONCERNS NOTED. BED IN LOW POSITION, CALL LITE IN REACH, CALLS APPROP
[2021-05-10 05:18] LABS: Hematocrit 34.8 % (33.0-51.0); Hemoglobin 11.1 g/dL (11.5-16.0); Mean Corpuscular HGB 30.6 pg (26.0-34.0); Mean Corpuscular HGB Conc 31.9 g/dL (31.5-36.5); Mean Corpuscular Volume 96 fL (80-100); Mean Platelet Volume 12.2 fL (9.1-12.4); Platelet Count 91 K/mm3 (150-400); RDW Coefficient Variation 15.3 % (11.7-14.2); RDW Standard Deviation 52.5 fL (35.1-46.3); Red Blood Cell Count 3.63 M/mm3 (3.80-5.20)
[2021-05-10 06:05] LABS: Albumin/Globulin Ratio 0.6 (0.8-1.8); Bilirubin, Total 0.6 mg/dL (0.1-1.0); Bun/Creatinine Ratio 16.2 (12.0-20.0); Calcium, Blood 8.8 mg/dL (8.5-10.1); Creatinine, Blood 1.17 mg/dL (0.40-1.00); Globulin, Blood 3.3 g/dL (2.2-4.0); Potassium, Blood 3.5 mmol/L (3.5-5.5); Total Protein, Blood 5.3 g/dL (6.4-8.2)
--- NOTE | 2021-05-10 06:10 | NUR ---
PM SHIFT SUMMARY PATIENT'S ONLY COMPLAINT FOR THE EVENING WAS THAT SHE HAD A PAIN SCORE OF 6/10 IN THE LOWER BACK AND GROIN REGION. SHE WAS SWITCHED TO AMPICILLIN FOR ABX ON 05/04/21. SHE WILL BE ON IT FOR 14 DAYS. SHE PREFERS TO GO HOME WITH HOME HEALTH .VS. A REHAB FACILITY. SHE IS A 1 PERSON ASSIST WITH A WALKER TO THE RESTROOM.
--- NOTE | 2021-05-10 16:02 | NUR ---
SHIFT SUMMARY PATIENT IS ALERT AND ORIENTED X4. PATIENT HAS HAD NO ACUTE EVENTS THIS SHIFT. PATIENT HAS COMPLAINED ON LOWER BACK PAIN, MEDICATED PER EMAR WITH GOOD RELIEF. PATIENT HAS HAD NO OTHER COMPLAINTS OF NAUSEA, VOMITTING, OR SOB. VITAL SIGNS REVIEWED. PATIENT WORKED WITH PT AND WAS UPGRADED TO SUPERVISION WHILE AMBULATING. BED IN LOCKED AND LOWEST POSITION. CALL LIGHT IN PLACE. WILL MONITOR UNTIL SHIFT CHANGE.
--- NOTE | 2021-05-11 06:57 | NUR ---
PM SHIFT SUMMARY PATIENT SLEPT MAJORITY OF THE EVENING. SHE ONLY HAD COMPLAINTS OF PAIN ONCE AROUND 0430 AND WAS GIVEN NORCO, WHICH RELIEVED PAIN WELL. SHE IS STILL RUNNING NORMAL SALINE AT 10ML KVO INTO HER MEDIPORT. SHE IS RECEIVING AMPICILLIN Q6H STILL WELL. PER NOTES, SHE HAS 1 MORE WEEK OF IV ABX LEFT TO GO, IT WAS ORDERED FOR 2 WEEKS ON 05/04/21. FINAL BLOOD CULTURES AT DAY 5 WERE NEGATIVE. SHE SEEMS TO BE GETTING STRONGER AND ABLE TO GET HERSELF UP TO HER WALKER. STILL DOING STANDBY 1 PERSON ASSIST.
[2021-05-11 08:23] LABS: Albumin/Globulin Ratio 0.6 (0.8-1.8); Bilirubin, Total 0.5 mg/dL (0.1-1.0); Bun/Creatinine Ratio 17.4 (12.0-20.0); Calcium, Blood 8.6 mg/dL (8.5-10.1); Creatinine, Blood 0.98 mg/dL (0.40-1.00); Globulin, Blood 3.1 g/dL (2.2-4.0); Potassium, Blood 3.6 mmol/L (3.5-5.5); Total Protein, Blood 5.1 g/dL (6.4-8.2)
--- NOTE | 2021-05-11 16:03 | NUR ---
SHIFT SUMMARY PATIENT IS ALERT AND ORIENTED X4. PATIENT HAS BEEN AMBULATING WITH SUPERVISION TO CHAIR AND BATHROOM WITHOUT INCIDENT. PROVIDER CONSULTS TO GASTRO AND SURGICAL ARE CALLED IN AND WILL CONSULT. PATIENT IS RECEIVING IV MEDIATIONS THROUGH MEDIPORT AND IS KVO 10ML/HR. PATIENT IS GETTING STRONGER AND MORE ALERT. PATIENT HAS HAD NO ACUTE EVENTS THIS SHIFT. VITAL SIGNS REVIEWED. BED IN LOWEST POSITION. CALL LIGHT IN PLACE. WILL MONITOR UNTIL SHIFT CHANGE.
--- NOTE | 2021-05-12 05:51 | NUR ---
PM SHIFT SUMMARY PATIENT NO LONGER COMPLAINS OF ABD PAIN AND IT IS NOW ALWAYS HER BACK THAT IS HURTING. SHE RECEIVED 2 DOSES OF NORCO DURING THE SHIFT. ON TOP OF HER Q6H AMPICILIN, SHE WILL BE STARTED ON A REGIMEN OF CEFTRIAXONE FOR 6 WEEKS WELL. HER GGT WAS 1591 IN HER MORNING LAB DRAW FROM . SHE WILL BE HAVING A CEDRICK DONE TODAY AND IS DURRENTLY NPO. SHE HAS NO DRINKS OR FOOD AT BEDSIDE AND ONLY HAD A SMALL SIP OF WATER WITH HER NORCO AND SYNTHROID. SHE HAS NO OTHER CONCERNS AT THIS TIME.
[2021-05-12 08:11] LABS: HBSAG SCREEN Negative (Negative); HEP A AB, IGM Negative (Negative); HEP B CORE AB, IGM Negative (Negative); HEP C VIRUS AB <0.1 (0.0-0.9)
--- NOTE | 2021-05-12 15:35 | NUR ---
PT DROWSY POST PROCEDURE, BUT EASILY ROUSABLE, DENEIS PAIN; VSS, SPO2 94-96% RA.
--- NOTE | 2021-05-12 16:05 | NUR ---
REPORT GIVEN TO JENNIFER LEONE, ALL QUESTIONS ANSWERED. PT RETURNED TO ROOM VIA RDAMEON, CONDITION STABLE.
--- NOTE | 2021-05-12 16:36 | NUR ---
SHIFT SUMMARY PATIENT DENIES PAIN, NAUSEA AND SHORTNESS OF BREATH. PATIENT IS A SBA WITH A FWW TO THE BATHROOM. PATIENT HAS BEEN NPO FOR MOST OF SHIFT DUE TO CDERICK. PATIENT TAKEN FOR CEDRICK AT 1400. PATIENT RETURNED AT 1600. VITALS STABLE. PATIENT STATES SHE IS TIRED BUT NOT IN PAIN. BEDSIDE REPORT FROM NATHANIEL. PATIENT CAN EAT AND DRINK AT 1700. PATIENT SLEEPING, BUT AROUSABLE. PATIENT IS PLEASANT AND COOPERATIVE WITH CARE.
--- NOTE | 2021-05-13 07:36 | NUR ---
PATIENT ON CONTINUOUS FLUIDS FOR MEDIPORT. IV ABX GIVEN. PATIENT ABLE TO TAKE MEDICATIONS PO. PATIENT ABLE TO AMBULATE TO RESTROOM X2 DURING SHIFT. NO CONCERNS.
[2021-05-13 09:19] LABS: Albumin, Blood 2.5 g/dL (3.4-5.0); Albumin/Globulin Ratio 0.6 (0.8-1.8); Bilirubin, Direct 0.2 mg/dL (0.0-0.3); Bilirubin, Indirect 0.3 mg/dL (0.1-0.7); Bilirubin, Total 0.5 mg/dL (0.1-1.0); Globulin, Blood 4.2 g/dL (2.2-4.0); Total Protein, Blood 6.7 g/dL (6.4-8.2)
--- NOTE | 2021-05-13 16:57 | NUR ---
SHIFT SUMMARY PATIENT DENIES PAIN, NAUSEA, AND SHORTNESS OF BREATH. PATIENT IS A SBA TO THE BATHROOM. PATIENT HAS NS RUNNING TKO INTO HER MEDIPORT IN THE RIGHT UPPER CHEST WALL. PATIENT IS NEEDING WEEKS OF IV ABX TREATMENT SO CASE MANAGEMENT LOOKING INTO SNF PLACEMENT. PATIENT IS EATING AND DRINKING WELL. PATIENT IS PLEASANT AND COOPERATIVE WITH CARE.
--- NOTE | 2021-05-14 09:56 | NUR ---
@ 0825, R CHEST PORT A CATH NOTED WITH NS @ 20 CC/HR INFUSING.
--- NOTE | 2021-05-14 17:37 | NUR ---
PATIENT NAPPED A LARGE PART OF THE DAY. SAT IN THE CHAIR FOR EACH MEAL AND AMBULATED TO BATHROOM. IV ABX ADMINISTERED PER E-MAR. MEDICATED ONCE FOR C/O HIP AND LOWER BACK PAIN. TOLERATED FOOD AND PO FLUIDS. AAO X 4. AWAITIING SNF PLACEMENT. WILL MONITOR.
--- NOTE | 2021-05-15 06:13 | NUR ---
PATIENT IN CHAIR UPON ARRIVAL.PATIENT DID NOT REPORT PAIN DURING SHIFT. PATIENT AMBULATES TO BATHROOM WITH WALKER AND ONE STAFF ASSIST. NO PRN'S PROVIDED.
--- NOTE | 2021-05-15 09:48 | NUR ---
@ 0918, SITTING IN BEDSIDE CHAIR EATING BREAKFAST. NS @ 20 CC/HR INFUSING INTO R CHEST PORT A CATH. WILL MONITOR.
--- NOTE | 2021-05-15 15:48 | NUR ---
SAT IN THE CHAIR A LARGE PORTION OF THE DAY. MEDICATED X 2 FOR C/O HIP AND LOWER BACK PAIN. AAO X 4. IV ABX CONTINUES PER E-MAR. NS @ KVO TO R CHEST PORT A CATH CONTINUES. AMBULATES TO BATHROOM TO VOID WITH STAND BY ASSISTANCE, OCCASIONALLY INCONTINENT AND HAS AN ATTENDS IN PLACE. AWAITING SNF PLACEMENT. WILL MONITOR.
--- NOTE | 2021-05-16 03:57 | NUR ---
PATIENT IN CHAIR UPON ARRIVAL TO SHIFT. PATIENT AMBULATED BY RN TO BATHROOM. PATIENT IS A 1 ASSIST WITH WALKER. NO REPORTS OF PAIN DURING SHIFT. PATIENT IN BED ASLEEP FOR MOST OF SHIFT, VITALS STABLE. NO NEW CONCERNS AT REPORT TIME. WILL UPDATE ONCOMING NURSE ON PATIENTS STATUS UPON ARRIVAL.
[2021-05-16 04:36] LABS: Hematocrit 32.3 % (33.0-51.0); Hemoglobin 10.3 g/dL (11.5-16.0); Mean Corpuscular HGB 30.9 pg (26.0-34.0); Mean Corpuscular HGB Conc 31.9 g/dL (31.5-36.5); Mean Corpuscular Volume 97 fL (80-100); Mean Platelet Volume 11.8 fL (9.1-12.4); Platelet Count 155 K/mm3 (150-400); RDW Coefficient Variation 15.3 % (11.7-14.2); RDW Standard Deviation 54.1 fL (35.1-46.3); Red Blood Cell Count 3.33 M/mm3 (3.80-5.20); White Blood Cell Count 8.14 K/mm3 (4.00-11.30)
[2021-05-16 05:29] LABS: Alanine Aminotransfer (ALT/SGP 51 U/L (12-78); Albumin, Blood 2.1 g/dL (3.4-5.0); Albumin/Globulin Ratio 0.6 (0.8-1.8); Alk Phos 1289 U/L (50-136); Anion Gap 7 mmol/L (6-16); Aspartate Aminotrans (AST/SGOT 57 U/L (12-37); Bilirubin, Total 0.5 mg/dL (0.1-1.0); Blood Urea Nitrogen 14 mg/dL (8-24); Bun/Creatinine Ratio 15.6 (12.0-20.0); CO2, Blood 25 mmol/L (21-32); Calcium, Blood 8.6 mg/dL (8.5-10.1); Chloride, Blood 108 mmol/L (98-108); Globulin, Blood 3.5 g/dL (2.2-4.0); Glomerular Filtration Rate >60 (60-); Glucose, Blood 100 mg/dL (70-99); Potassium, Blood 3.4 mmol/L (3.5-5.5); Sodium, Blood 140 mmol/L (136-145); Total Protein, Blood 5.6 g/dL (6.4-8.2)
--- NOTE | 2021-05-16 16:49 | NUR ---
PATIENT IS AWAKE,ALERT AND ORIENTED TIMES THREE. PAIN CONTROL. PATIENT AND FAMILY MEMBER MET WITH DIALYSIS BIOMED TECHNICIAN TO DISCUSS PLAN OF CARE AND PLACEMENT. PATIENT ATE ALL OF BREAKFAST AND LUNCH.
--- NOTE | 2021-05-17 05:45 | NUR ---
SHIFT SUMMARY NO ACUTE CHANGES THIS SHIFT. AOX4. SLOW TO RESPOND. VSS. REPORTS 6/10 PAIN L HIP & LOW BACK, MEDICATED 1X c NORCO & NO FURTHER DISCOMFORT REPORTED. DENIES SOB OR N/V. INCONT/CONT OF URINE, ATTENDS CHANGE PRN. AWAITING DC PLAN TO SNF IN [place]. CALL LIGHT IN REACH. WCTM.
--- NOTE | 2021-05-17 18:58 | NUR ---
SHIFT SUMMARY- PT IS A/O, PLESANT AND COOPERATVIE. SHE IS EATING AND DRINKING WELL THIS SHIFT. HER AND SON WERE AT BEDSIDE THIS SHIFT. SHE IS RECIEVING IV ABX. SHE AMBULATED TO THE RESTROOM THIS SHIFT. SHE WAS UP TO THE CHAIR FOR MEALS. FAMILY HAS QUESTIONS ABOUT DISCHARGE AND THE POSIBILITY OF GIVING ABX AT HOME. WILL FOLLOW UP WITH DISHCARGE FURNACE COMBUSTION ANALYST IN THE MORNING. CALL LIGHT IS ART HEATH.
--- NOTE | 2021-05-18 04:28 | NUR ---
BEADING SAWYER SUMMARY HAS BEEN RESTING QUIETLY WITH FEW INTERRUPTIONS SINCE HS. UP TO BATHROOM WITH ASSIST A FWE TIMES. IVF AND ANTIBIOTICS PER MD ORDERS - SEE MAR FOR DETAILS. HAS DENIED PAIN WHEN ASKED. ALERT AND ORIENTED. CALL LIGHT IN REACH
--- NOTE | 2021-05-18 18:52 | NUR ---
SHIFT SUMMARY- PT IS A/O, PLESANT AND COOPERATIVE. SHE IS EATING AND DRINKING WELL. AMBULATING TO THE RESTROOM. HER AND SON WERE AT BEDSIDE THIS SHIFT. HE IS IN THE CHAIR WITH THE CALL LIGHT ART HEATH.
--- NOTE | 2021-05-19 03:26 | NUR ---
UPON ARRIVAL PATIENT IN ROOM SPEAKING WITH SON AND . PATIENT ALERT AND ORIENTED X4. PLAN FOR PATIENT IS TO DISCHARGE TO A SNIFF PLACEMENT IF SPACE IS AVAILABLE DUE TO THE COMPLEXITY OF ANTIBIOTIC REGIMENT THAT PT WILL NEED TO CONTINUE AFTER DISCHARGING FROM THE HOSPITAL. NO PAIN EXPRESSED DURING SHIFT PATIENT WAS ASLEEP FOR THE MAJORITY OF THE NIGHT. . NO NEW CONCERNS WILL REPORT TO ONCOMING NURSE UPON ARRIVAL.
--- NOTE | 2021-05-19 18:34 | NUR ---
SHIFT SUMMARY NO ACUTE CHANGES THIS HSIFT. PT HAS HAD SOME LOWER BACK PAIN AND WAS MEDICATED PER MAR. THERE WAS SOME DEBATE OVER WHETHER PT WOULD BE DISCHARGED TO A SNF FASCILITY OR TAKEN HOME. THE VERDIST HAS BEEN REACHED THAT SHE WILL DISCHARGE HOME WITH HOME HEALTH TOMORROW. WILL CONTINUE TO MONITOR.
[2021-05-20] MEDS ORDERED: Ampicillin Sodiu2 G1 IV (12:19)
[2021-05-20] MEDS ORDERED: LACT (12:20)
[2021-05-20] MEDS ORDERED: MIRT15 (12:21)
[2021-05-20] MEDS ORDERED: SENN187 PO (12:22)
[2021-05-20] MEDS ORDERED: CLOT10 MT (12:26)
[2021-05-20] MEDS ORDERED: CEFTRIAXONE2 G1 IV (13:23)
--- NOTE | 2021-05-20 13:34 | NUR ---
DISCHARGE PT WAS DISCHARGED HOME AT 13:30 BY WHEELCHAIR. MEDIPORT LEFT ACCESSED PER HOME HEALTH NURSE AND CARE COORDINATORS NEW CAP USED, HEPARIN LOCKED, AND SECURED WITH TEGEDERM AND STERISTRIPS. HOME HEALTH WILL COMMENCE CARE OF PORT AND ACCESS.
[2021-05-21 01:09] LABS: ALKALINE PHOSPHATASE, S 1378 IU/L (44-121); BONE FRACTION: 35 % (14-68); INTESTINAL FRAC.: 0 % (0-18); LIVER FRACTION: 65 % (18-85)
== END 2021-05-20 12:40 | disposition home health service (06) | DRG 314 ==
LOC: ER 14:52 → MEDS 20:19 → ENPENDDIS 05-20 11:45 → MEDS 05-20 12:40
PROVIDERS: Emergency Medicine; Internal Medicine; Student in an Organized Health Care Education/Training Program; ADMIT Internal Medicine
DX: T82.6XXA Infection and inflammatory reaction due to cardiac valve prosthesis, initial encounter (principal); A41.81 Sepsis due to Enterococcus; R65.20 Severe sepsis without septic shock; N17.9 Acute kidney failure, unspecified; C85.10 Unspecified B-cell lymphoma, unspecified site; E87.1 Hypo-osmolality and hyponatremia; I38 Endocarditis, valve unspecified; Z20.822 Contact with and (suspected) exposure to COVID-19; Z53.29 Procedure and treatment not carried out because of patient's decision for other reasons; K80.20 Calculus of gallbladder without cholecystitis without obstruction; I35.0 Nonrheumatic aortic (valve) stenosis; E03.9 Hypothyroidism, unspecified; M19.90 Unspecified osteoarthritis, unspecified site; M41.9 Scoliosis, unspecified; G89.29 Other chronic pain; M54.9 Dorsalgia, unspecified; D69.6 Thrombocytopenia, unspecified; E86.0 Dehydration; R74.01 Elevation of levels of liver transaminase levels; K52.9 Noninfective gastroenteritis and colitis, unspecified; Z96.643 Presence of artificial hip joint, bilateral; Z95.0 Presence of cardiac pacemaker; Z88.0 Allergy status to penicillin; Z91.048 Other nonmedicinal substance allergy status; Z79.82 Long term (current) use of aspirin; Z79.899 Other long term (current) drug therapy; Y83.1 Surgical operation with implant of artificial internal device as the cause of abnormal reaction of the patient, or of later complication, without mention of misadventure at the time of the procedure
CPT/HCPCS: 0202U; 36415; 74176; 76705; 80048; 80053; 80074; 80076; 81003; 82140; 82248; 82977; 83605; 83690; 83880; 84075; 84080; 84100; 84145; 85025; 85027; 85651; 86140; 87040; 87077; 87186; 93005; 93010; 93306; 93312; 93325; 96374; 96375; 97110; 97116; 97162; 97165; 97530; 97535; 99152; 99153; 99285-25; A9270; J0290; J0696; J0744; J1642; J1885; J2250; J2310; J2405; J3010; J3370; J7030; J7040; J7050

== ENCOUNTER → 2021-05-24 | Outpatient (CLI) | payer MEDICARE ==
[~2021-05-24] MED LIST changes: +Ampicillin Sodiu2 G1 IV; +CEFTRIAXONE2 G1 IV; +CLOT10 MT; +LACT; +MIRT15; +SENN187 PO
[2021-05-24 16:15] LABS: BASOPHILS ABSOLUTE AUTO 0.07 K/mm3 (0.00-0.23); BASOPHILS PERCENT AUTO 1 % (0-2); EOSINOPHILS ABSOLUTE AUTO 0.24 K/mm3 (0.00-0.68); EOSINOPHILS PERCENT AUTO 3 % (0-6); Hemoglobin 10.8 g/dL (11.5-16.0); IMMATURE GRAN ABSOLUTE AUTO 0.02 K/mm3 (0.00-0.10); IMMATURE GRAN PERCENT AUTO 0 % (0-1); LYMPHOCYTES ABSOLUTE AUTO 1.42 K/mm3 (0.84-5.20); LYMPHOCYTES PERCENT AUTO 17 % (21-46); MONOCYTES PERCENT AUTO 13 % (4-13); Mean Corpuscular HGB Conc 31.8 g/dL (31.5-36.5); Mean Corpuscular Volume 98 fL (80-100); Mean Platelet Volume 12.1 fL (9.1-12.4); NEUTROPHILS ABSOLUTE AUTO 5.41 K/mm3 (1.96-9.15); NEUTROPHILS PERCENT AUTO 66 % (41-73); Platelet Count 164 K/mm3 (150-400); RDW Coefficient Variation 15.3 % (11.7-14.2); Red Blood Cell Count 3.48 M/mm3 (3.80-5.20); White Blood Cell Count 8.26 K/mm3 (4.00-11.30)
[2021-05-24 16:18] LABS: Alanine Aminotransfer (ALT/SGP 46 U/L (12-78); Albumin, Blood 2.5 g/dL (3.4-5.0); Albumin/Globulin Ratio 0.7 (0.8-1.8); Alk Phos 1092 U/L (50-136); Anion Gap 6 mmol/L (6-16); Aspartate Aminotrans (AST/SGOT 52 U/L (12-37); Bilirubin, Total 0.6 mg/dL (0.1-1.0); Blood Urea Nitrogen 8 mg/dL (8-24); Bun/Creatinine Ratio 12.5 (12.0-20.0); CO2, Blood 27 mmol/L (21-32); Calcium, Blood 8.9 mg/dL (8.5-10.1); Chloride, Blood 110 mmol/L (98-108); Creatinine, Blood 0.64 mg/dL (0.40-1.00); Globulin, Blood 3.7 g/dL (2.2-4.0); Glomerular Filtration Rate >60 (60-); Glucose, Blood 96 mg/dL (70-99); Potassium, Blood 3.4 mmol/L (3.5-5.5); Sodium, Blood 143 mmol/L (136-145); Total Protein, Blood 6.2 g/dL (6.4-8.2)
== END | disposition home or self-care (01) ==
LOC: LAB 13:35 → LAB SHORT 13:35
PROVIDERS: Family Medicine
DX: A41.9 Sepsis, unspecified organism (principal); I38 Endocarditis, valve unspecified; D72.825 Bandemia; R00.0 Tachycardia, unspecified
CPT/HCPCS: 80053; 85025

== ENCOUNTER → 2021-05-31 | Outpatient (CLI) | payer MEDICARE ==
[2021-05-31 18:56] LABS: BASOPHILS ABSOLUTE AUTO 0.06 K/mm3 (0.00-0.23); BASOPHILS PERCENT AUTO 1 % (0-2); EOSINOPHILS ABSOLUTE AUTO 0.39 K/mm3 (0.00-0.68); EOSINOPHILS PERCENT AUTO 4 % (0-6); Hematocrit 34.3 % (33.0-51.0); Hemoglobin 10.9 g/dL (11.5-16.0); IMMATURE GRAN ABSOLUTE AUTO 0.01 K/mm3 (0.00-0.10); IMMATURE GRAN PERCENT AUTO 0 % (0-1); LYMPHOCYTES ABSOLUTE AUTO 1.79 K/mm3 (0.84-5.20); LYMPHOCYTES PERCENT AUTO 20 % (21-46); MONOCYTES ABSOLUTE AUTO 1.15 K/mm3 (0.16-1.47); MONOCYTES PERCENT AUTO 13 % (4-13); Mean Corpuscular HGB 31.3 pg (26.0-34.0); Mean Corpuscular HGB Conc 31.8 g/dL (31.5-36.5); Mean Corpuscular Volume 99 fL (80-100); Mean Platelet Volume 12.3 fL (9.1-12.4); NEUTROPHILS ABSOLUTE AUTO 5.37 K/mm3 (1.96-9.15); NEUTROPHILS PERCENT AUTO 61 % (41-73); Platelet Count 149 K/mm3 (150-400); RDW Coefficient Variation 15.9 % (11.7-14.2); RDW Standard Deviation 57.5 fL (35.1-46.3); Red Blood Cell Count 3.48 M/mm3 (3.80-5.20); White Blood Cell Count 8.77 K/mm3 (4.00-11.30)
[2021-05-31 19:35] LABS: Alanine Aminotransfer (ALT/SGP 54 U/L (12-78); Albumin, Blood 2.6 g/dL (3.4-5.0); Albumin/Globulin Ratio 0.7 (0.8-1.8); Alk Phos 1004 U/L (50-136); Anion Gap 8 mmol/L (6-16); Aspartate Aminotrans (AST/SGOT 67 U/L (12-37); Bilirubin, Total 0.3 mg/dL (0.1-1.0); Blood Urea Nitrogen 9 mg/dL (8-24); Bun/Creatinine Ratio 14.6 (12.0-20.0); CO2, Blood 26 mmol/L (21-32); Calcium, Blood 8.9 mg/dL (8.5-10.1); Chloride, Blood 107 mmol/L (98-108); Creatinine, Blood 0.62 mg/dL (0.40-1.00); Globulin, Blood 3.7 g/dL (2.2-4.0); Glomerular Filtration Rate >60 (60-); Glucose, Blood 96 mg/dL (70-99); Potassium, Blood 3.5 mmol/L (3.5-5.5); Sodium, Blood 141 mmol/L (136-145); Total Protein, Blood 6.3 g/dL (6.4-8.2)
== END ==
LOC: LAB SHORT 17:15
PROVIDERS: Internal Medicine
DX: A41.9 Sepsis, unspecified organism (principal); R65.20 Severe sepsis without septic shock; R00.0 Tachycardia, unspecified; I38 Endocarditis, valve unspecified; Z79.2 Long term (current) use of antibiotics; D64.9 Anemia, unspecified
CPT/HCPCS: 80053; 85025

== ENCOUNTER → 2021-06-07 | Outpatient (CLI) | payer MEDICARE ==
[2021-06-07 18:55] LABS: BASOPHILS ABSOLUTE AUTO 0.05 K/mm3 (0.00-0.23); BASOPHILS PERCENT AUTO 1 % (0-2); EOSINOPHILS PERCENT AUTO 3 % (0-6); Hematocrit 33.5 % (33.0-51.0); Hemoglobin 10.5 g/dL (11.5-16.0); IMMATURE GRAN ABSOLUTE AUTO 0.02 K/mm3 (0.00-0.10); IMMATURE GRAN PERCENT AUTO 0 % (0-1); LYMPHOCYTES ABSOLUTE AUTO 1.19 K/mm3 (0.84-5.20); LYMPHOCYTES PERCENT AUTO 17 % (21-46); MONOCYTES ABSOLUTE AUTO 1.08 K/mm3 (0.16-1.47); MONOCYTES PERCENT AUTO 16 % (4-13); Mean Corpuscular HGB 31.2 pg (26.0-34.0); Mean Corpuscular HGB Conc 31.3 g/dL (31.5-36.5); Mean Corpuscular Volume 99 fL (80-100); Mean Platelet Volume 11.5 fL (9.1-12.4); NEUTROPHILS ABSOLUTE AUTO 4.45 K/mm3 (1.96-9.15); NEUTROPHILS PERCENT AUTO 64 % (41-73); Platelet Count 143 K/mm3 (150-400); RDW Coefficient Variation 16.9 % (11.7-14.2); RDW Standard Deviation 61.7 fL (35.1-46.3); Red Blood Cell Count 3.37 M/mm3 (3.80-5.20); White Blood Cell Count 6.99 K/mm3 (4.00-11.30)
[2021-06-07 19:05] LABS: Alanine Aminotransfer (ALT/SGP 51 U/L (12-78); Albumin, Blood 2.6 g/dL (3.4-5.0); Albumin/Globulin Ratio 0.7 (0.8-1.8); Alk Phos 988 U/L (50-136); Anion Gap 6 mmol/L (6-16); Aspartate Aminotrans (AST/SGOT 57 U/L (12-37); Bilirubin, Total 0.4 mg/dL (0.1-1.0); Blood Urea Nitrogen 12 mg/dL (8-24); CO2, Blood 25 mmol/L (21-32); Calcium, Blood 8.8 mg/dL (8.5-10.1); Chloride, Blood 107 mmol/L (98-108); Creatinine, Blood 0.63 mg/dL (0.40-1.00); Globulin, Blood 3.7 g/dL (2.2-4.0); Glomerular Filtration Rate >60 (60-); Glucose, Blood 135 mg/dL (70-99); Potassium, Blood 3.4 mmol/L (3.5-5.5); Sodium, Blood 138 mmol/L (136-145); Total Protein, Blood 6.3 g/dL (6.4-8.2)
== END ==
LOC: LAB 16:45 → LAB SHORT 16:45
DX: D64.9 Anemia, unspecified (principal); R00.0 Tachycardia, unspecified; D72.825 Bandemia; A41.9 Sepsis, unspecified organism; I38 Endocarditis, valve unspecified; R65.20 Severe sepsis without septic shock; Z79.2 Long term (current) use of antibiotics
CPT/HCPCS: 80053; 85025

== ENCOUNTER → 2021-06-15 | Outpatient (CLI) | payer MEDICARE ==
[2021-06-15 18:09] LABS: BASOPHILS ABSOLUTE AUTO 0.05 K/mm3 (0.00-0.23); BASOPHILS PERCENT AUTO 1 % (0-2); EOSINOPHILS ABSOLUTE AUTO 0.18 K/mm3 (0.00-0.68); EOSINOPHILS PERCENT AUTO 4 % (0-6); Hematocrit 34.7 % (33.0-51.0); IMMATURE GRAN ABSOLUTE AUTO 0.01 K/mm3 (0.00-0.10); IMMATURE GRAN PERCENT AUTO 0 % (0-1); LYMPHOCYTES ABSOLUTE AUTO 1.26 K/mm3 (0.84-5.20); LYMPHOCYTES PERCENT AUTO 25 % (21-46); MONOCYTES ABSOLUTE AUTO 0.86 K/mm3 (0.16-1.47); MONOCYTES PERCENT AUTO 17 % (4-13); Mean Corpuscular HGB 32.1 pg (26.0-34.0); Mean Corpuscular HGB Conc 31.7 g/dL (31.5-36.5); Mean Corpuscular Volume 101 fL (80-100); NEUTROPHILS ABSOLUTE AUTO 2.65 K/mm3 (1.96-9.15); NEUTROPHILS PERCENT AUTO 53 % (41-73); Platelet Count 125 K/mm3 (150-400); RDW Coefficient Variation 16.9 % (11.7-14.2); RDW Standard Deviation 63.1 fL (35.1-46.3); Red Blood Cell Count 3.43 M/mm3 (3.80-5.20); White Blood Cell Count 5.01 K/mm3 (4.00-11.30)
[2021-06-15 19:31] LABS: Alanine Aminotransfer (ALT/SGP 72 U/L (12-78); Albumin, Blood 2.7 g/dL (3.4-5.0); Albumin/Globulin Ratio 0.7 (0.8-1.8); Alk Phos 955 U/L (50-136); Anion Gap 4 mmol/L (6-16); Aspartate Aminotrans (AST/SGOT 79 U/L (12-37); Bilirubin, Total 0.3 mg/dL (0.1-1.0); Blood Urea Nitrogen 11 mg/dL (8-24); Bun/Creatinine Ratio 16.7 (12.0-20.0); CO2, Blood 27 mmol/L (21-32); Chloride, Blood 109 mmol/L (98-108); Creatinine, Blood 0.66 mg/dL (0.40-1.00); Globulin, Blood 3.7 g/dL (2.2-4.0); Glomerular Filtration Rate >60 (60-); Glucose, Blood 125 mg/dL (70-99); Potassium, Blood 3.8 mmol/L (3.5-5.5); Sodium, Blood 140 mmol/L (136-145); Total Protein, Blood 6.4 g/dL (6.4-8.2)
== END ==
LOC: LAB SHORT 16:10
DX: A41.9 Sepsis, unspecified organism (principal); R65.20 Severe sepsis without septic shock; D64.9 Anemia, unspecified; I38 Endocarditis, valve unspecified; D72.825 Bandemia; R00.0 Tachycardia, unspecified; Z79.2 Long term (current) use of antibiotics
CPT/HCPCS: 80053; 85025

== ENCOUNTER → 2021-06-21 | Outpatient (CLI) | payer MEDICARE ==
[2021-06-21 19:38] LABS: BASOPHILS ABSOLUTE AUTO 0.03 K/mm3 (0.00-0.23); BASOPHILS PERCENT AUTO 1 % (0-2); EOSINOPHILS ABSOLUTE AUTO 0.18 K/mm3 (0.00-0.68); EOSINOPHILS PERCENT AUTO 4 % (0-6); Hematocrit 36.2 % (33.0-51.0); Hemoglobin 11.3 g/dL (11.5-16.0); IMMATURE GRAN ABSOLUTE AUTO 0.01 K/mm3 (0.00-0.10); IMMATURE GRAN PERCENT AUTO 0 % (0-1); LYMPHOCYTES ABSOLUTE AUTO 1.63 K/mm3 (0.84-5.20); LYMPHOCYTES PERCENT AUTO 32 % (21-46); MONOCYTES ABSOLUTE AUTO 0.78 K/mm3 (0.16-1.47); MONOCYTES PERCENT AUTO 15 % (4-13); Mean Corpuscular HGB 31.7 pg (26.0-34.0); Mean Corpuscular HGB Conc 31.2 g/dL (31.5-36.5); Mean Corpuscular Volume 101 fL (80-100); Mean Platelet Volume 11.4 fL (9.1-12.4); NEUTROPHILS ABSOLUTE AUTO 2.51 K/mm3 (1.96-9.15); NEUTROPHILS PERCENT AUTO 49 % (41-73); Platelet Count 137 K/mm3 (150-400); RDW Coefficient Variation 16.5 % (11.7-14.2); RDW Standard Deviation 62.1 fL (35.1-46.3); Red Blood Cell Count 3.57 M/mm3 (3.80-5.20); White Blood Cell Count 5.14 K/mm3 (4.00-11.30)
[2021-06-22 00:02] LABS: Alanine Aminotransfer (ALT/SGP 85 U/L (12-78); Albumin, Blood 2.9 g/dL (3.4-5.0); Albumin/Globulin Ratio 0.8 (0.8-1.8); Alk Phos 999 U/L (50-136); Anion Gap 1 mmol/L (6-16); Aspartate Aminotrans (AST/SGOT 84 U/L (12-37); Bilirubin, Total 0.3 mg/dL (0.1-1.0); Blood Urea Nitrogen 14 mg/dL (8-24); Bun/Creatinine Ratio 18.4 (12.0-20.0); CO2, Blood 30 mmol/L (21-32); Calcium, Blood 9.5 mg/dL (8.5-10.1); Chloride, Blood 107 mmol/L (98-108); Creatinine, Blood 0.76 mg/dL (0.40-1.00); Globulin, Blood 3.6 g/dL (2.2-4.0); Glomerular Filtration Rate >60 (60-); Glucose, Blood 136 mg/dL (70-99); Potassium, Blood 3.8 mmol/L (3.5-5.5); Sodium, Blood 138 mmol/L (136-145); Total Protein, Blood 6.5 g/dL (6.4-8.2)
== END | disposition home or self-care (01) ==
LOC: LAB 17:00 → LAB SHORT 17:00
PROVIDERS: Internal Medicine
DX: A41.9 Sepsis, unspecified organism (principal); R65.20 Severe sepsis without septic shock; D72.825 Bandemia; I38 Endocarditis, valve unspecified; R00.0 Tachycardia, unspecified; D64.9 Anemia, unspecified; Z79.2 Long term (current) use of antibiotics
CPT/HCPCS: 80053; 85025

== ENCOUNTER → 2021-06-28 | Outpatient (CLI) | payer MEDICARE ==
[2021-06-28 13:51] LABS: BASOPHILS ABSOLUTE AUTO 0.04 K/mm3 (0.00-0.23); BASOPHILS PERCENT AUTO 1 % (0-2); EOSINOPHILS ABSOLUTE AUTO 0.11 K/mm3 (0.00-0.68); EOSINOPHILS PERCENT AUTO 3 % (0-6); Hematocrit 36.6 % (33.0-51.0); Hemoglobin 11.5 g/dL (11.5-16.0); IMMATURE GRAN PERCENT AUTO 0 % (0-1); LYMPHOCYTES ABSOLUTE AUTO 1.45 K/mm3 (0.84-5.20); LYMPHOCYTES PERCENT AUTO 33 % (21-46); MONOCYTES ABSOLUTE AUTO 0.58 K/mm3 (0.16-1.47); MONOCYTES PERCENT AUTO 13 % (4-13); Mean Corpuscular HGB 31.9 pg (26.0-34.0); Mean Corpuscular HGB Conc 31.4 g/dL (31.5-36.5); Mean Corpuscular Volume 101 fL (80-100); NEUTROPHILS PERCENT AUTO 50 % (41-73); Platelet Count 112 K/mm3 (150-400); RDW Coefficient Variation 15.9 % (11.7-14.2); RDW Standard Deviation 60.3 fL (35.1-46.3); Red Blood Cell Count 3.61 M/mm3 (3.80-5.20); White Blood Cell Count 4.38 K/mm3 (4.00-11.30)
[2021-06-28 15:14] LABS: Alanine Aminotransfer (ALT/SGP 108 U/L (12-78); Albumin/Globulin Ratio 0.8 (0.8-1.8); Alk Phos 968 U/L (50-136); Anion Gap 8 mmol/L (6-16); Aspartate Aminotrans (AST/SGOT 103 U/L (12-37); Bilirubin, Total 0.3 mg/dL (0.1-1.0); Blood Urea Nitrogen 13 mg/dL (8-24); CO2, Blood 25 mmol/L (21-32); Calcium, Blood 9.4 mg/dL (8.5-10.1); Chloride, Blood 107 mmol/L (98-108); Creatinine, Blood 0.68 mg/dL (0.40-1.00); Globulin, Blood 3.7 g/dL (2.2-4.0); Glomerular Filtration Rate >60 (60-); Glucose, Blood 187 mg/dL (70-99); Potassium, Blood 4.1 mmol/L (3.5-5.5); Sodium, Blood 140 mmol/L (136-145); Total Protein, Blood 6.7 g/dL (6.4-8.2)
== END | disposition home or self-care (01) ==
LOC: LAB SHORT 12:47
DX: A41.9 Sepsis, unspecified organism (principal); R65.20 Severe sepsis without septic shock; I38 Endocarditis, valve unspecified; D64.9 Anemia, unspecified; R00.0 Tachycardia, unspecified; D72.825 Bandemia; Z79.2 Long term (current) use of antibiotics
CPT/HCPCS: 80053; 85025

== ENCOUNTER → 2021-07-05 | Outpatient (CLI) | payer MEDICARE ==
[2021-07-05 19:13] LABS: BASOPHILS ABSOLUTE AUTO 0.03 K/mm3 (0.00-0.23); BASOPHILS PERCENT AUTO 1 % (0-2); EOSINOPHILS ABSOLUTE AUTO 0.11 K/mm3 (0.00-0.68); EOSINOPHILS PERCENT AUTO 2 % (0-6); Hematocrit 36.5 % (33.0-51.0); Hemoglobin 11.5 g/dL (11.5-16.0); IMMATURE GRAN PERCENT AUTO 0 % (0-1); LYMPHOCYTES ABSOLUTE AUTO 1.75 K/mm3 (0.84-5.20); LYMPHOCYTES PERCENT AUTO 36 % (21-46); MONOCYTES PERCENT AUTO 12 % (4-13); Mean Corpuscular HGB 32.2 pg (26.0-34.0); Mean Corpuscular HGB Conc 31.5 g/dL (31.5-36.5); Mean Corpuscular Volume 102 fL (80-100); NEUTROPHILS ABSOLUTE AUTO 2.34 K/mm3 (1.96-9.15); NEUTROPHILS PERCENT AUTO 49 % (41-73); Platelet Count 114 K/mm3 (150-400); RDW Coefficient Variation 15.2 % (11.7-14.2); RDW Standard Deviation 57.7 fL (35.1-46.3); Red Blood Cell Count 3.57 M/mm3 (3.80-5.20); White Blood Cell Count 4.83 K/mm3 (4.00-11.30)
[2021-07-05 21:22] LABS: Alanine Aminotransfer (ALT/SGP 122 U/L (12-78); Albumin/Globulin Ratio 0.9 (0.8-1.8); Alk Phos 929 U/L (50-136); Anion Gap 3 mmol/L (6-16); Aspartate Aminotrans (AST/SGOT 98 U/L (12-37); Bilirubin, Total 0.2 mg/dL (0.1-1.0); Blood Urea Nitrogen 17 mg/dL (8-24); Bun/Creatinine Ratio 25.5 (12.0-20.0); CO2, Blood 28 mmol/L (21-32); Calcium, Blood 9.3 mg/dL (8.5-10.1); Chloride, Blood 108 mmol/L (98-108); Creatinine, Blood 0.67 mg/dL (0.40-1.00); Globulin, Blood 3.4 g/dL (2.2-4.0); Glomerular Filtration Rate >60 (60-); Glucose, Blood 198 mg/dL (70-99); Potassium, Blood 3.7 mmol/L (3.5-5.5); Sodium, Blood 139 mmol/L (136-145); Total Protein, Blood 6.4 g/dL (6.4-8.2)
== END | disposition home or self-care (01) ==
LOC: LAB SHORT 17:05
PROVIDERS: Internal Medicine
DX: R00.0 Tachycardia, unspecified (principal); D72.825 Bandemia; I38 Endocarditis, valve unspecified; R65.20 Severe sepsis without septic shock; D64.9 Anemia, unspecified; Z79.2 Long term (current) use of antibiotics
CPT/HCPCS: 80053; 85025

== ENCOUNTER → 2021-07-21 | Outpatient (CLI) | payer MEDICARE | END | disposition home or self-care (01) | LOC: PLD 12:29 → LAB SHORT 12:29 | DX: D04.72 Carcinoma in situ of skin of left lower limb, including hip (principal) | CPT/HCPCS: 88305 ==

== ENCOUNTER → 2021-11-24 | Outpatient (CLI) | payer MEDICARE | END | disposition home or self-care (01) | LOC: PLD 12:13 → LAB SHORT 12:13 | DX: L30.8 Other specified dermatitis (principal); I96 Gangrene, not elsewhere classified | CPT/HCPCS: 88305; 88312 ==

== ENCOUNTER → 2021-11-24 | Outpatient (CLI) | payer MEDICARE ==
[2021-11-30 09:10] LABS: HSV-1 DNA Negative (Negative); HSV-2 DNA Negative (Negative)
== END | disposition home or self-care (01) ==
LOC: LAB 11:25 → LAB SHORT 11:25
PROVIDERS: Dermatology
DX: L98.9 Disorder of the skin and subcutaneous tissue, unspecified (principal)
CPT/HCPCS: 87529; 87798

== ENCOUNTER → 2022-06-08 | Outpatient (CLI) | payer MEDICARE | END | disposition home or self-care (01) | LOC: LAB SHORT 16:27 | DX: N39.41 Urge incontinence (principal) | CPT/HCPCS: 87086 ==